=== PATIENT | female | born 1985 | race Caucasian/White ===

== ENCOUNTER → 2019-09-12 20:15 | Observation (INO) ==
[2019-09-12 17:14] LABS: Bilirubin,Urine Negative (Negative); Blood,Urine Negative (Negative); Clarity,Urine Clear (Clear); Color,Urine Yellow (Yellow); Glucose,Urine (UA) Normal (Normal); Ketones,Urine Negative (Negative); Leukocyte Esterase,Urine Small (Negative); Nitrite,Urine Negative (Negative); PH,Urine 6.5 pH Units (5.0-8.0); Protein,Urine Negative (Neg-Trace); Specific Gravity,Urine 1.009 (1.010-1.025); Urobilinogen,Urine Normal (Normal)
[2019-09-12 17:16] LABS: Bacteria,Urine Few per hpf (None-Few); Hyaline Casts,Urine None Seen per lpf (None-Few); RBC,Urine 0-3 per hpf (0-3); Squamous Epithelial Cell,Urine Many per lpf (None-Few)
[~2019-09-12 20:15] MED LIST: Ringers Solution, Lactated 1,000 ML IVC ONE; Ringers Solution, Lactated 1,000 ML ONE
== END | disposition home or self-care (01) ==
LOC: 1NENULAB
PROVIDERS: ADMIT Obstetrics & Gynecology; ATTEND Obstetrics & Gynecology

== ENCOUNTER 2019-11-30 13:00 | Inpatient (IN) ==
[2019-11-30] MEDS ORDERED: Lidocaine 1% 20 ML MDV INFILT PRN (14:40)
[2019-11-30] MEDS ORDERED: Ondansetron 4 MG/2 ML VIAL IVP PRN (14:40)
[2019-11-30] MEDS ORDERED: Famotidine 20 MG/2 ML VIAL IVP PRN (14:40)
[2019-11-30] MEDS ORDERED: Naloxone 0.4 MG/ML INJ IVP PRN (14:40)
[2019-11-30] MEDS ORDERED: Metoclopramide 10 MG/2 ML VIAL IVP PRN (14:40)
[2019-11-30] MEDS ORDERED: *HR* FentaNYL (PF) 100 MCG/2 ML VIAL IVP PRN (14:40)
[2019-11-30] MEDS ORDERED: Ringers Solution, Lactated 1,000 ML IVC SCH (14:45)
[2019-11-30 15:13] LABS: Basophils % 0.1 %; Eosinophils # 0.1 K/mcL (0.0-0.6); Eosinophils % 0.6 %; Hematocrit 36.9 % (35.3-44.9); Hemoglobin 12.5 g/dL (11.5-15.4); Immature Granulocytes % 0.2 % (0-4); Lymphocytes # 1.3 K/mcL (0.6-4.6); Lymphocytes % 15.8 %; Mean Corpuscular HGB Conc 33.9 g/dL (31.6-35.5); Mean Corpuscular Hemoglobin 32.2 pg (28.0-33.3); Mean Corpuscular Volume 95.1 fL (83.0-100.0); Mean Platelet Volume 10.2 fL (9.4-12.4); Monocytes # 0.6 K/mcL (0.0-1.3); Neutrophils # 6.2 K/mcL (1.6-8.9); Platelet Count 227 K/mcL (140-400); Red Blood Count 3.88 M/mcL (3.82-4.97); Red Cell Distribution Width 12.5 % (11.5-14.5); Segmented Neutrophils % 76.3 %; White Blood Count 8.1 K/mcL (4.3-11.1)
[2019-11-30] MEDS ORDERED: Oxytocin 20 units/ LR 1000 mL 20 UNIT/1,000 ML BAG IVC SCH (15:15)
[2019-11-30 15:23] LABS: Amphetamine Screen,Urine Negative ng/mL (Cutoff=1000); Barbiturate Screen,Urine Negative ng/mL (Cutoff=200); Benzodiazepines Screen,Urine Negative ng/mL (Cutoff=200); Cannabinoid Screen,Urine Negative ng/mL (Cutoff = 50); Cocaine Screen,Urine Negative ng/mL (Cutoff= 300); Opiate Screen,Urine Negative ng/mL (Cutoff=300); Phencyclidine Screen,Urine Negative ng/mL (Cutoff=25)
[2019-11-30] MEDS ORDERED: EPHEDrine 50 MG/ML VIAL IVP PRN (16:41)
[2019-11-30] MEDS ORDERED: Epidural Premix (fent/bupiv) 110 ML EP SCH (16:45)
[2019-12-01] MEDS ORDERED: Oxytocin 20 units/ LR 1000 mL 20 UNIT/1,000 ML BAG IVC ONE (00:04)
[2019-12-01] MEDS ORDERED: Acetaminophen 325 MG TABLET PO PRN (00:04)
[2019-12-01] MEDS ORDERED: Oxytocin 20 units/ LR 1000 mL 20 UNIT/1,000 ML BAG IVC SCH (00:04)
[2019-12-01] MEDS: Ibuprofen 600 MG TABLET PO PRN ×3 (01:24→20:04)
[2019-12-01 05:02] LABS: Basophils % 0.1 %; Eosinophils % 0.2 %; Hematocrit 34.9 % (35.3-44.9); Hemoglobin 11.8 g/dL (11.5-15.4); Immature Granulocytes % 0.2 % (0-4); Lymphocytes # 1.5 K/mcL (0.6-4.6); Lymphocytes % 11.9 %; Mean Corpuscular HGB Conc 33.8 g/dL (31.6-35.5); Mean Corpuscular Hemoglobin 32.2 pg (28.0-33.3); Mean Corpuscular Volume 95.1 fL (83.0-100.0); Mean Platelet Volume 10.2 fL (9.4-12.4); Monocytes # 0.7 K/mcL (0.0-1.3); Monocytes % 5.6 %; Neutrophils # 10.4 K/mcL (1.6-8.9); Platelet Count 201 K/mcL (140-400); Red Blood Count 3.67 M/mcL (3.82-4.97); Red Cell Distribution Width 12.3 % (11.5-14.5)
[2019-12-01 05:13] LABS: White Blood Count 12.7 K/mcL (4.3-11.1)
[2019-12-01] MEDS: Loratadine 10 MG TABLET PO SCH (09:08)
[2019-12-01] MEDS: Prenatal Vit/FA 1 EACH TABLET PO SCH (09:08)
[2019-12-02] MEDS: Ibuprofen 600 MG TABLET PO PRN (07:09)
[2019-12-02 07:45] VITALS: BP 112/74
[2019-12-02] MEDS: Loratadine 10 MG TABLET PO SCH (07:54)
[2019-12-02] MEDS: Prenatal Vit/FA 1 EACH TABLET PO SCH (07:54)
== END 2019-12-02 09:57 | disposition home or self-care (01) | DRG 807 ==
LOC: 1NENULAB 14:29 → 1NENUOBS 12-01 00:04
PROVIDERS: ADMIT Obstetrics & Gynecology; ATTEND Obstetrics & Gynecology